=== PATIENT | male | born 1965 ===

== ENCOUNTER 2018-11-16 07:06 | Emergency (ER) | payer SELFPAY ==
[2018-11-16 07:25] VITALS: BMI 24.1
[2018-11-16 07:29] VITALS: TEMP 97.9
[2018-11-16] MEDS ORDERED: Iohexol 240 (50 ml) ONE (08:34)
--- NOTE | 2018-11-16 08:51 | ED PDOC ---
Arrival/HPI - General Chief Complaint: Abdominal Pain Time Seen by Provider: 11/16/18 07:27 Historian: Patient - History of Present Illness Narrative History of Present Illness (Text): 11/16/18 08:44 53 year old male, with no significant past medical history, who presents to the ED for left upper quadrant abdominal pain since today. Patient reports pain is intermittent and worsens upon movement. Patient denies any chest pain, shortness of breath, headache, fever, chills, cough, nausea, vomiting, diarrhea, dizziness, dysuria, hematuria or any other complaints. Time/Duration: < week Symptom Onset: Gradual Symptom Course: Unchanged Activities at Onset: Light Context: Home Past Medical History - Provider Review Nursing Documentation Reviewed: Yes - Psychiatric Hx Substance Use: No - Anesthesia Hx Anesthesia: No Hx Anesthesia Reactions: No Hx Malignant Hyperthermia: No Family/Social History - Physician Review Nursing Documentation Reviewed: Yes Family/Social History: Unknown Family HX Smoking Status: Never Smoked Hx Alcohol Use: No Hx Substance Use: No Allergies/Home Meds Allergies/Adverse Reactions: Allergies No Known Allergies Allergy (Verified 11/16/18 07:25) Review of Systems - Physician Review All systems were reviewed & negative as marked: Yes - Review of Systems Constitutional: absent: Fevers Respiratory: absent: SOB, Cough Cardiovascular: absent: Chest Pain Gastrointestinal: Abdominal Pain. absent: Diarrhea, Nausea, Vomiting Genitourinary Male: absent: Dysuria, Hematuria Musculoskeletal: absent: Back Pain Physical Exam - Physical Exam Narrative Physical Exam (Text): 11/16/18 08:52 Gen: VS reviewed, alert, well developed, well nourished, nontoxic, mild distress ENT: normal pharynx Eye: EOMI, PERRL Neck: no JVD, supple, no adenopathy CV: regular rate, regular rhythm, no rubs, no murmur, no gallops, S1, S2, pulses, equal and strong Pulm: no distress, clear to auscultation, no wheeze, no rhonchi, breath sounds equal, no rales Abd: Patient clearly splinting when lying down flat from a seated position, pain localized to LUQ. soft, nontender with palpation, no guarding, no rebound, no rigidity, normal bowel sounds Ext: no edema Skin: good color, no rash, no cyanosis Psych: responds appropriately to questions, normal affect Neuro: oriented x 3, CN2-12 intact grossly, motor intact, sensation intact Vital Signs Reviewed: Yes Vital Signs Temp Pulse Resp BP Pulse Ox 11/16/18 07:29 97.9 F 69 18 120/72 100 Temperature: Afebrile Blood Pressure: Normal Pulse: Regular Respiratory Rate: Normal Appearance: Positive for: Well-Appearing, Non-Toxic, Comfortable Pain Distress: Mild Mental Status: Positive for: Alert and Oriented X 3 Medical Decision Making ED Course and Treatment: 11/16/18 08:54 Impression: 53 year old male who presents to the ED for abdominal pain. Plan: -- Abdomen/Pelvis CT -- Labs -- IV Fluids -- Urinalysis -- Reassess and disposition Progress Notes: 11/16/18 11:58 patient seen for left sided abdominal pain, intermittent, absent at this time. Ct was done to rule out hernia vs divertic vs other. Patient understands findings, understands dispo and follow up care plan. it was discussed to follow up with pcp for potential referral to specialist which may require eventual endoscopy/colonoscopy. Patient had good understands of discussion and states will follow up. - RAD Interpretation Narrative RAD Interpretations (Text): 11/16/18 11:26 CT of Abdomen/Pelvis reviewed by radiologist, shows: FINDINGS: LOWER THORAX: Unremarkable. LIVER: Unremarkable. No gross lesion or ductal dilatation. GALLBLADDER AND BILE DUCTS: Unremarkable. PANCREAS: Unremarkable. No gross lesion or ductal dilatation. SPLEEN: Unremarkable. ADRENALS: Unremarkable. No mass. KIDNEYS AND URETERS: Unremarkable. No hydronephrosis. No solid mass. VASCULATURE: Unremarkable. No aortic aneurysm. No aortic atherosclerotic calcification or mural plaque present. BOWEL: Unremarkable. No obstruction. No gross mural thickening. APPENDIX: Normal appendix. PERITONEUM: Unremarkable. No free fluid. No free air. LYMPH NODES: Unremarkable. No enlarged lymph nodes. BLADDER: Unremarkable. REPRODUCTIVE: Unremarkable. BONES: No acute fracture. OTHER FINDINGS: None. IMPRESSION: Unremarkable contrast enhanced CT of the abdomen and pelvis. Radiology Orders: 11/16/18 08:27 ABDOMEN & PELVIS [ABD PELVIS PO & IV CONTRAST] [CT] Stat Supervisor Shipping Room: Radiologist - Dcibdione Statement The provider has reviewed the documentation as recorded by the Joo vines with Gaston. All medical record entries made by the Joo were at my direction and personally dictated by me. I have reviewed the chart and agree that the record accurately reflects my personal performance of the history, physical exam, medical decision making, and the department course for this patient. I have also personally directed, reviewed, and agree with the discharge instructions and disposition. Disposition/Present on Arrival - Present on Arrival Any Indicators Present on Arrival: No History of DVT/PE: No History of Uncontrolled Diabetes: No Urinary Catheter: No History of Decub. Ulcer: No History Surgical Site Infection Following: None - Disposition Have Diagnosis and Disposition been Completed?: Yes Diagnosis: Abdominal pain Disposition: HOME/ ROUTINE Disposition Time: 12:00 Patient Plan: Discharge Condition: STABLE Discharge Instructions (ExitCare): Acute Abdomen (Belly Pain), Adult (DC) Additional Instructions: return for any new or worsening symptoms. follow up with a primary care doctor-you may need a referral to a specialist (microfilm mounter). Prescriptions: Ibuprofen [Motrin Tab] 600 mg PO QID #30 tab Referrals: David Echols DO [Staff Provider] - Follow up with primary Mariama Vargas MD [Medical Doctor] - Follow up with primary [facility] [Outside] - Follow up with primary Forms: [facility] ([place]), WORK NOTE
[2018-11-16 09:08] LABS: EOS # 0.1 (0.0-0.7); EOS % 2.1 % (1.5-5.0); HEMOGLOBIN 14.3 g/dL (14.0-18.0); LYMPH # 1.8 (1.2-3.4); LYMPH % 37.3 % (22.0-35.0); MEAN CELL VOLUME 86.1 fl (80.0-105.0); MEAN CORPUSCULAR HEMOGLOBIN 29.2 pg (25.0-35.0); MEAN CORPUSCULAR HGB CONC 33.9 g/dl (31.0-37.0); MEAN PLATELET VOLUME 8.7 fl (7.0-11.0); MONO # 0.5 (0.1-0.6); MONO % 10.1 % (1.0-6.0); RBC 4.9 10^6/uL (3.5-6.1); RED CELL DISTRIBUTION WIDTH 14.1 % (11.5-14.5); WHITE BLOOD COUNT 4.9 10^3/uL (4.5-11.0)
[2018-11-16 09:12] LABS: URINE APPEARANCE CLEAR (CLEAR); URINE BILIRUBIN NEGATIVE (NEGATIVE); URINE BLOOD NEGATIVE (NEGATIVE); URINE COLOR YELLOW (YELLOW); URINE GLUCOSE (UA) NEGATIVE (NEGATIVE); URINE LEUKOCYTE ESTERASE NEGATIVE Leu/uL (NEGATIVE); URINE PROTEIN NEGATIVE mg/dL (<30 mg/dL); URINE UROBILINOGEN 0.2 E.U./dL (<1 E.U./dL)
[2018-11-16 09:23] LABS: ALB/GLOB RATIO 1.2 (1.1-1.8); ALT/SGPT 26 U/L (7-56); AST/SGOT 32 U/L (17-59); BLOOD UREA NITROGEN 17 mg/dL (7-21); CALCIUM 8.7 mg/dL (8.4-10.5); GFR NON-AFRICAN AMERICAN > 60; LIPASE 83 U/L (23-300)
[2018-11-16] MEDS ORDERED: Iohexol 350 MG/100 ML VIAL ONE (10:04)
[2018-11-16 10:35] VITALS: RESP 16
--- NOTE | 2018-11-16 11:03 | CT ---
Date of service: 11/16/2018 PROCEDURE: CT Abdomen and Pelvis with contrast HISTORY: intermittent left upper abdominal pain COMPARISON: None. TECHNIQUE: Contrast dose: 100 cc of Omni 350 Radiation dose: Total exam DLP = 280.39 mGy-cm. This CT exam was performed using one or more of the following dose reduction techniques: Automated exposure control, adjustment of the mA and/or kV according to patient size, and/or use of iterative reconstruction technique. FINDINGS: LOWER THORAX: Unremarkable. LIVER: Unremarkable. No gross lesion or ductal dilatation. GALLBLADDER AND BILE DUCTS: Unremarkable. PANCREAS: Unremarkable. No gross lesion or ductal dilatation. SPLEEN: Unremarkable. ADRENALS: Unremarkable. No mass. KIDNEYS AND URETERS: Unremarkable. No hydronephrosis. No solid mass. VASCULATURE: Unremarkable. No aortic aneurysm. No aortic atherosclerotic calcification or mural plaque present. BOWEL: Unremarkable. No obstruction. No gross mural thickening. APPENDIX: Normal appendix. PERITONEUM: Unremarkable. No free fluid. No free air. LYMPH NODES: Unremarkable. No enlarged lymph nodes. BLADDER: Unremarkable. REPRODUCTIVE: Unremarkable. BONES: No acute fracture. OTHER FINDINGS: None. IMPRESSION: Unremarkable contrast enhanced CT of the abdomen and pelvis.
[2018-11-16 12:39] VITALS: BP 106/70; PULSE 59; O2SAT 100
== END 2018-11-16 12:40 | disposition home or self-care (01) ==
LOC: ED 07:06
DX: R10.9 Unspecified abdominal pain (principal)
CPT/HCPCS: 74177; 80053; 81003; 83690; 85025; 99284; Q9966; Q9967